=== PATIENT | male | born 1970 | race Hispanic/Latino ===

== ENCOUNTER 2017-12-09 06:27 | Inpatient (IN) | payer OTHER ==
[2017-12-09] MEDS ORDERED: ECOTRIN PO NR (06:59)
[2017-12-09] MEDS ORDERED: NACL 0.9% 500 ML 500 ML IV SCH (07:00)
[2017-12-09 07:32] LABS: Hematocrit 44.2 % (35.5-45.6); Mean Corpuscular HGB Conc 32 % (32-34); Mean Corpuscular Volume 81 fl (84-94); Platelet Count 169 K/mm3 (140-440); Red Blood Count 5.48 M/mm3 (3.65-5.03); Red Cell Distribution Width 17.9 % (13.2-15.2)
[2017-12-09 07:37] LABS: Mean Corpuscular Hemoglobin 26 pg (28-32)
[2017-12-09 07:40] LABS: INR 0.99 (0.87-1.13)
[2017-12-09 07:44] LABS: Calcium 9.2 mg/dL (8.4-10.2)
[2017-12-09] MEDS ORDERED: CALAN ONE (08:37)
[2017-12-09] MEDS ORDERED: HEPARIN/NS 5000 UNIT/500ML(CATH LAB) 1,000 ML IR ONE (08:37)
[2017-12-09] MEDS ORDERED: VERSED ONE (08:38)
[2017-12-09] MEDS ORDERED: NITROGLYCERIN SYRINGE 3 ML ONE (08:38)
[2017-12-09] MEDS ORDERED: XYLOCAINE 2% INFILTRATI ONE (08:38)
[2017-12-09] MEDS ORDERED: SUBLIMAZE ONE (08:39)
[2017-12-09 08:45] LABS: Band Neutrophils # (Manual) 0.1 K/mm3; Basophils % (Manual) 0 % (0.0-1.8); Total Cells Counted 100
[2017-12-09 08:46] LABS: Hypochromasia 1+
[2017-12-09] MEDS ORDERED: BENADRYL IV ONE (09:00)
[2017-12-09] MEDS ORDERED: PEPCID IV NR (09:15)
[2017-12-09] MEDS: HEPARIN 10,000 UNITS/10 ML ONE ×4 (09:23→10:13)
[2017-12-09] MEDS ORDERED: PLAVIX ONE (10:18)
[2017-12-09] MEDS ORDERED: ALUM-MAG HYDROX-SIMETH 200-200-20MG/5ML ONE (10:18)
[2017-12-09] MEDS ORDERED: TYLENOL PO PRN (10:20)
[2017-12-09] MEDS ORDERED: ZOFRAN IV PRN (10:20)
[2017-12-09] MEDS ORDERED: D50W (25GM) Syringe IV PRN (10:53)
[2017-12-09] MEDS ORDERED: COUMADIN PO SCH ×2 (11:00)
[2017-12-09] MEDS ORDERED: NOVOLOG SUB-Q ONE (11:10)
[2017-12-09] MEDS: NOVOLOG SUB-Q SCH ×3 (11:11→22:33)
--- NOTE | 2017-12-09 11:44 | Cardiac Catherization Report ---
REFERRING PHYSICIAN: Dr. Matthew Corrales. INDICATION FOR PROCEDURE: The patient is a very pleasant 47-year-old gentleman with multiple complex issues including mild chronic kidney disease, status post renal transplant, atrial fibrillation, systemic anticoagulation, diabetes, legal blindness secondary hyperparathyroidism, who presents here with active symptoms of chest pain with exertion, shortness of breath with exertion. Stress test is abnormal with lateral ischemia and was started on Imdur, already on beta blockade, still with chest pain and dyspnea. Referred for left heart catheterization. Risks, benefits, and potential alternatives were explained at length prior to obtaining informed consent. He was premedicated for dye allergy. PROCEDURE IN DETAIL: The patient was brought to the mine laborer in a postabsorptive state, prepped and draped in sterile fashion. Gerald's test in right hand was normal. A 2 mL of 2% lidocaine used to anesthetize right wrist. A standard 6-[place] Citizen hydrophilic sheath used to cannulate the right radial artery via modified Seldinger technique. All exchanges performed to exchange a J-tip guidewire. JL3.5 catheter used to engage left main. No dampening or ventricularization. Cineangiography performed in all projections. JR4 catheter used to cross the aortic valve under fluoroscopic guidance. Left ventriculography performed in 30 FELIZ and 30 JULIAN projections via hand injections, catheter flushed. Manual pullback performed with continuous pressure monitoring. Catheter used to engage the right coronary. No dampening or ventricularization. Cineangiography performed in all projections. I directly supervised moderate sedation with the administration of fentanyl and Versed. Moderate sedation was supervised for a total of 31 minutes from 9:20 a.m. to 9:51 a.m. DATA: Aortic pressure is 130/60, LV pressure is 130, LVP of 20 mmHg. Left ventriculography revealed normal systolic performance with estimated ejection fraction of 55% to 60%. No evidence of aortic stenosis. CORONARY ANATOMY: This is a right dominant system. Right coronary is a moderate to large vessel, courses AV groove, distally bifurcates in the posterior and posterolateral branch. Distal right coronary posterior descending artery with a chronic total occlusion. This is a very distal occlusion. Extensive left to right collaterals were identified. Left main is without significant disease. Bifurcates in left anterior descending and left circumflex with 99% proximal stenosis. Extensive left circumflex to distal right coronary collaterals identified. LAD is moderately calcified with what appears to be long calcific 40% to 50% stenosis in the mid segment. His stress test revealed lateral ischemia on multiple antianginals and continued to have chest pain and shortness of breath. Given his symptoms and our angiographic findings, we will proceed with PCI. At this point, we decided to proceed with PCI of the left circumflex. Heparin given. The patient loaded with aspirin and Plavix. EBU 3.5 guide used to engage the left main without difficulty. We used Prowater wire to cross the lesion without difficulty, predilated lesion with 3.0 x 12 balloon, improved angiographic results. Next, we used a 3.5 x 15 Integrity bare-metal stent at 12 RAMON for 30 seconds. The reason I chose bare-metal stent is that he is already on Coumadin therapy due to atrial fibrillation and to decrease the overall time with dual antiplatelet therapy and systemic anticoagulation. Excellent angiographic result. Next, we used intravascular ultrasound. Multiple passes were made, which revealed a well apposed and well expanded stent. No complications. CONCLUSIONS: 1. Severe coronary disease as aforementioned. 2. A 99% proximal left circumflex. A. Successful IVUS guided PCI with placement of bare-metal stent with excellent final angiographic and also ultrasonographic results (Integrity bare-metal stent 3.5 x 15). B. A 40% to 50% long mid LAD calcific stenosis. 3. Chronic total occlusion of the very distal right coronary with excellent left to right collaterals. 4. Preserved left ventricular systolic performance with estimated ejection fraction of 55% to 60%. 5. No evidence of aortic stenosis. 6. Normal LVEDP. At this point, we will initiate gentle IV fluids. We will watch his kidney function. I tried to minimize contrast as much as possible. A total of 40 mL of Isovue was used. Continue Plavix, aspirin, and statin therapy. He will be watched overnight. Results of procedure explained in length to the patient and family. All questions and concerns were addressed. JOB# [id number] SBM/NTS
[2017-12-09] MEDS: COUMADIN PO SCH (18:24)
[2017-12-09] MEDS: NEURONTIN PO SCH (22:26)
[2017-12-09] MEDS: CELLCEPT PO SCH (22:26)
[2017-12-09] MEDS: LANOXIN PO SCH (22:26)
[2017-12-09] MEDS: DESYREL PO SCH (22:26)
[2017-12-09] MEDS: LOPRESSOR PO SCH (22:27)
[2017-12-10 06:01] LABS: Hematocrit 44.6 % (35.5-45.6); Hemoglobin 14.1 gm/dl (11.8-15.2); Mean Corpuscular HGB Conc 32 % (32-34); Mean Corpuscular Volume 80 fl (84-94); Platelet Count 154 K/mm3 (140-440); Red Blood Count 5.56 M/mm3 (3.65-5.03); Red Cell Distribution Width 18.1 % (13.2-15.2)
[2017-12-10 06:06] LABS: Mean Corpuscular Hemoglobin 25 pg (28-32)
[2017-12-10 06:21] LABS: BUN/Creatinine Ratio 15; Blood Urea Nitrogen 18 mg/dL (9-20); Calcium 9.4 mg/dL (8.4-10.2); Hemolysis Index 12
[2017-12-10 06:24] LABS: INR 1.03 (0.87-1.13)
[2017-12-10 06:48] LABS: Creatine Kinase MB 3.2 ng/mL (0.0-4.0)
[2017-12-10 07:17] LABS: Band Neutrophils # (Manual) 0.3 K/mm3; Basophils % (Manual) 0 % (0.0-1.8); Total Cells Counted 100
[2017-12-10 07:18] LABS: Hypochromasia 1+
[2017-12-10] MEDS: NOVOLOG SUB-Q SCH ×3 (07:30→18:30)
--- NOTE | 2017-12-10 09:08 | Short Stay Summary ---
Short Stay Documentation Date of service: 12/10/17 - History H&P: obtained from office - Allergies and Medications Current Medications: Allergies povidone-iodine [From Betadine] Allergy (Verified 12/09/17 08:52) Hives soap [From Betadine] Allergy (Verified 12/09/17 08:53) Hives Home Medications Medication Instructions Recorded Confirmed Last Taken Type AtorvaSTATin [Lipitor] 10 mg PO QHS 12/09/17 12/09/17 12/08/17 History 10mg Digoxin [Lanoxin] 0.125 mg PO HS 12/09/17 12/09/17 12/08/17 History 0.125mg Furosemide [Lasix TAB] 40 mg PO DAILY 12/09/17 12/09/17 12/06/17 History 40mg Gabapentin [Neurontin] 100 mg PO HS 12/09/17 12/09/17 12/08/17 History 100mg ISOSORBIDE MONOnitrate [Imdur ER] 30 mg PO DAILY 12/09/17 12/09/17 12/09/17 05: 30 History 30mg Insulin Degludec [Tresiba 55 units SQ HS 12/09/17 12/09/17 12/08/17 History Flextouch U-100] 55 units Insulin Lispro [Humalog 100 30 - 40 units SQ AC PRN 12/09/17 12/09/17 12/08/17 18:00 History UNITS/ML Kwikpen] 35units Lexapro 20 mg PO HS 12/09/17 12/09/17 12/08/17 History 20mg Metoprolol [Lopressor] 25 mg PO BID 12/09/17 12/09/17 12/09/17 05:30 History 25mg Mycophenolate [Cellcept] 1,000 mg PO BID 12/09/17 12/09/17 12/09/17 05:30 History 1000mg Pantoprazole [Protonix TAB] 40 mg PO DAILY 12/09/17 12/09/17 12/09/17 05:30 History 40mg Propafenone HCl [Propafenone HCl 1 tab PO HS 12/09/17 12/09/17 12/08/17 History ER] 1 tab Trazodone HCl [traZODone] 150 mg PO QHS 12/09/17 12/09/17 12/08/17 History 150mg Warfarin Sodium [Coumadin] 5 mg PO 2XW 12/09/17 12/09/17 11/30/17 History 5mg Warfarin [Coumadin] 10 mg PO 5XW 12/09/17 12/09/17 12/02/17 History 10mg Wellbutrin SR 200 mg PO BID 12/09/17 12/09/17 12/09/17 05:30 History 200mg amLODIPine [Norvasc] 5 mg PO DAILY 12/09/17 12/09/17 12/09/17 05:30 History 5mg predniSONE [Deltasone] 5 mg PO DAILY 12/09/17 12/09/17 12/09/17 05:00 History 5mg Active Medications Acetaminophen (Tylenol) 650 mg PO Q4H PRN PRN Reason: Pain MILD(1-3)/Fever >100.5/RAMIREZ Amlodipine Besylate (Norvasc) 5 mg PO DAILY [facility] Aspirin (Ecotrin) 325 mg PO QDAY [facility] Atorvastatin Calcium (Lipitor) 40 mg PO QHS [facility] Last Admin: 12/09/17 22:26 Dose: 40 mg Clopidogrel Bisulfate (Plavix) 75 mg PO QDAY [facility] Dextrose (D50w (25gm) Syringe) 50 ml IV PRN PRN PRN Reason: Hypoglycemia Digoxin (Lanoxin) 0.125 mg PO HS [facility] Last Admin: 12/09/17 22:26 Dose: 0.125 mg Furosemide (Lasix) 40 mg PO DAILY [facility] Gabapentin (Neurontin) 100 mg PO HS [facility] Last Admin: 12/09/17 22:26 Dose: 100 mg Insulin Aspart (Novolog) 0 units SUB-Q ACHS [facility] PRN Reason: Protocol Last Admin: 12/10/17 07:30 Dose: Not Given Isosorbide Mononitrate (Imdur) 30 mg PO DAILY [facility] Metoprolol Tartrate (Lopressor) 25 mg PO BID [facility] Last Admin: 12/09/17 22:27 Dose: 25 mg Mycophenolate Mofetil (Cellcept) 1,000 mg PO BID [facility] Last Admin: 12/09/17 22:26 Dose: 1,000 mg Ondansetron HCl (Zofran) 4 mg IV Q8H PRN PRN Reason: N/V unrelieved by Regdolores Pantoprazole Sodium (Protonix) 40 mg PO DAILY [facility] Prednisone (Deltasone) 5 mg PO DAILY [facility] Propafenone HCl (Rythmol) 225 mg PO DAILY [facility] Trazodone HCl (Desyrel) 150 mg PO QHS [facility] Last Admin: 12/09/17 22:26 Dose: 150 mg Warfarin Sodium (Coumadin) 5 mg PO TuFr@1700 [facility] PRN Reason: Protocol Warfarin Sodium (Coumadin) 10 mg PO SuMoWeThSa@1700 [facility] PRN Reason: Protocol Last Admin: 12/09/17 18:24 Dose: 10 mg - Physical exam General appearance: no acute distress Integumentary: no rash, no growths, no abnormal pigmentation HEENT: Atraumatic, PERRLA, EOMI Lungs: Clear to auscultation Heart: Regular rate, Normal S1, Normal S2 Gastrointestinal: normal, normoactive bowel sounds Extremities: no ischemia, pulses intact, pulses symmetrical, No edema Neurological: Normal gait, Normal speech, Strength at 5/5 X4 ext - Brief post op/procedure progress note Date of procedure: 12/09/17 Pre-op diagnosis: chest pain Post-op diagnosis: other (CAD) Procedure: LHC - see cath report Anesthesia: local Estimated blood loss: none Condition: stable - Hospital course Hospital course: The pt presented for scheduled elective C for further evaluation chest pain and was found to have 99% prox left circumflex occlusion and 40-50% long mid LAD calcific stenosis, chronic total occlusion of the RCA with excellent collaterals, EF 55-60%. He underwent PCI with placement of BMS to left circ. He remained clinically and hemodynamically stable throughout procedure and recovery. Following LHC, pt was found to have hyperkalemia with serum K+ 5.2-> 5.4 and pt was kept an additional night for observation and nephrology consultation. However, this AM, pt with serum K+ 4.4 and stable serum Cr. Nephrology consultation cancelled. Pt with no current cardiac complaints. He is medically stable for discharge today. He is to see his newborn hearing screener, Dr. Hinojosa , within 1 week for labwork and follow-up. He is to follow up in our [place] office with Dr. ELSA Camejo on 12/23/2017 @ 1 :45PM. - Disposition Condition at discharge: Good Disposition: [id number] TO HOME OR SELFCARE - Discharge Diagnoses (1) CAD (coronary artery disease) Status: Chronic (2) Stented coronary artery Status: Chronic (3) Atrial fibrillation Status: Chronic (4) HTN (hypertension) Status: Chronic (5) Hyperlipidemia Status: Chronic (6) Diabetes mellitus Status: Chronic (7) History of kidney transplant Status: Chronic (8) Legal blindness Status: Chronic Short Stay Discharge Plan Activity: advance as tolerated Diet: low fat, low cholesterol, low salt, diabetic, renal Wound: open to air, keep clean and dry, per your surgeon's advice Follow up with: MICHAEL CARUSO MD [Primary Care Provider] - 7 Days ELEANOR CAMEJO MD [Staff Physician] - 7 Days (Follow up in our [place] office with Dr. ELSA Camejo on 12/23/2017 @ 1:45PM. ) Forms: CardCath PCI D/C Instructions, Warfarin Discharge Instruction, Work/ School Excuse Out Patient Prescriptions: AtorvaSTATin [Lipitor] 40 mg PO QHS #30 tablet Clopidogrel [Plavix] 75 mg PO QDAY #30 tablet
[2017-12-10] MEDS: PLAVIX PO SCH (09:52)
[2017-12-10] MEDS: CELLCEPT PO SCH ×2 (09:55→22:45)
[2017-12-10] MEDS: RYTHMOL PO SCH (09:55)
[2017-12-10] MEDS: LASIX PO SCH (09:58)
[2017-12-10] MEDS: ECOTRIN PO SCH (09:58)
[2017-12-10] MEDS: PROTONIX PO SCH (09:58)
[2017-12-10] MEDS: DELTASONE PO SCH (09:58)
[2017-12-10] MEDS: LOPRESSOR PO SCH ×3 (09:59→22:44)
[2017-12-10] MEDS: IMDUR PO SCH (10:00)
[2017-12-10] MEDS: NORVASC PO SCH (10:00)
--- NOTE | 2017-12-10 10:01 | XRay Report ---
Portable chest: The heart project is being enlarged but could be accentuated by positioning. There is mild increased blood flow to the upper lobes. The lungs appear generally clear with no edema. No prior study for comparison. Impression: Suspect cardiomegaly. Mild congestion.
[2017-12-10] MEDS ORDERED: LASIX IV ONE (11:00)
[2017-12-10] MEDS ORDERED: LASIX IV SCH (11:00)
[2017-12-10 16:14] LABS: Calcium 9.3 mg/dL (8.4-10.2)
--- NOTE | 2017-12-10 16:46 | Event Note ---
Date: 12/10/17 Repeat BMP with serum K+ of 5.4. Discharge cancelled. Nephrology consulted for further evaluation and management. Eddie IZAGUIRRE NP / DR. Evelyn CAMEJO
[2017-12-10] MEDS: COUMADIN PO SCH (18:31)
[2017-12-10] MEDS: DESYREL PO SCH (22:33)
[2017-12-10] MEDS: NEURONTIN PO SCH (22:34)
[2017-12-10] MEDS: LANOXIN PO SCH (22:45)
[2017-12-11] MEDS: NOVOLOG SUB-Q SCH ×2 (03:57→08:00)
[2017-12-11 06:42] LABS: INR 1.05 (0.87-1.13)
[2017-12-11 06:44] LABS: Calcium 9.8 mg/dL (8.4-10.2)
[2017-12-11] MEDS: PLAVIX PO SCH (11:21)
[2017-12-11] MEDS: CELLCEPT PO SCH (11:21)
[2017-12-11] MEDS: ECOTRIN PO SCH (11:22)
[2017-12-11] MEDS: PROTONIX PO SCH (11:22)
[2017-12-11] MEDS: LASIX PO SCH (11:22)
[2017-12-11] MEDS: DELTASONE PO SCH (11:22)
[2017-12-11] MEDS: IMDUR PO SCH (11:23)
[2017-12-11] MEDS: NORVASC PO SCH (11:23)
[2017-12-11] MEDS: LOPRESSOR PO SCH (11:23)
[2017-12-11 11:24] VITALS: BP 154/74
[2017-12-11] MEDS: RYTHMOL PO SCH (11:24)
[2017-12-11] MEDS ORDERED: COUMADIN PO SCH (17:00)
== END 2017-12-11 12:00 | disposition home or self-care (01) | DRG 249 ==
LOC: CATHLABREC 06:27 → 4A 10:21 → OBSVTOIN 12-11 09:13
PROVIDERS: ADMIT Internal Medicine; ATTEND Internal Medicine
PROC: 4A023N7 Measurement of Cardiac Sampling and Pressure, Left Heart, Percutaneous Approach (ICD-10-PCS; principal; 2017-12-09)
PROC: 02703DZ Dilation of Coronary Artery, One Artery with Intraluminal Device, Percutaneous Approach (ICD-10-PCS; 2017-12-09)
PROC: B2111ZZ Fluoroscopy of Multiple Coronary Arteries using Low Osmolar Contrast (ICD-10-PCS; 2017-12-09)
PROC: B2151ZZ Fluoroscopy of Left Heart using Low Osmolar Contrast (ICD-10-PCS; 2017-12-09)
PROC: 6A750Z5 Ultrasound Therapy of Heart, Single (ICD-10-PCS; 2017-12-09)
DX: I25.10 Atherosclerotic heart disease of native coronary artery without angina pectoris (principal); Z94.0 Kidney transplant status; N25.81 Secondary hyperparathyroidism of renal origin; E87.5 Hyperkalemia; I25.82 Chronic total occlusion of coronary artery; I48.91 Unspecified atrial fibrillation; I10 Essential (primary) hypertension; E78.5 Hyperlipidemia, unspecified; F32.9 Major depressive disorder, single episode, unspecified; E11.9 Type 2 diabetes mellitus without complications; H54.8 Legal blindness, as defined in USA; Z79.899 Other long term (current) drug therapy; Z79.4 Long term (current) use of insulin; Z80.3 Family history of malignant neoplasm of breast; Z80.8 Family history of malignant neoplasm of other organs or systems; Z83.3 Family history of diabetes mellitus; Z82.49 Family history of ischemic heart disease and other diseases of the circulatory system
CPT/HCPCS: 36415; 71045; 80048; 82550; 82553; 82962; 84484; 85007; 85025; 85347; 85610; 85730; 92928; 92978; 93005; 93010; 93458; 96372; 96374; A9270-GY; C1725; C1753; C1769; C1876; C1887; C1894; G0378; J1200; J1644; J1815; J1940; J2250; J2930; J3010; J7040; J7512; J7517; Q9967